=== PATIENT | female | born 1990 | race Two or more races ===

== ENCOUNTER 2019-01-18 15:44 | Emergency (ER) | payer BC, MEDICAID ==
[~2019-01-18] VITALS: Ht 165.1 cm; Wt 117.9 kg
[2019-01-18 16:01] VITALS: BP_SYST 145
--- NOTE | 2019-01-18 16:09 | NUR ---
Patient triaged and placed in waiting room. VSS and patient appears in no acute distress at this time. Accompanied by mother, awaiting available bed, and MD notified of need for MSE.
--- NOTE | 2019-01-18 16:10 | NUR ---
Patient to ER bed h1 for evaluation. Side rails up.
--- NOTE | 2019-01-18 16:12 | NUR ---
Pt AAOx4 ambulated into ED c/o abscess to L arm x 2 weeks with new onset numbness and tingling to L arm. Pt has been taking ibuprofen with no relief. Pt insists to not have D&C. Dr. Saez notified. No active bleeding to site. No other injuries/complaints per pt/noted. Will continue to monitor.
--- NOTE | 2019-01-18 16:13 | NUR ---
ER Dr. Saez at bedside examining patient.
[2019-01-18] MEDS ORDERED: MIDAZOLAM HCL 5 MG/5 ML VIAL IVP ONE (17:15)
[2019-01-18] MEDS ORDERED: KETAMINE 30 MG/3 ML SYRINGE 30 MG in NS 100 ML IV ONE (17:15)
[2019-01-18] MEDS ORDERED: NACL 0.9% 1,000 ML IV ONE (17:15)
[2019-01-18] MEDS ORDERED: LIDOCAINE 1% 10 MG/ML, 20 ML MDV INJ ONE (17:45)
--- NOTE | 2019-01-18 17:50 | NUR ---
Moved to bed 07
[2019-01-18] MEDS ORDERED: KETAMINE 30 MG/3 ML SYRINGE ONE (18:48)
[2019-01-18 19:52] VITALS: BP_SYST 135
--- NOTE | 2019-01-18 19:52 | NUR ---
Patient given written and verbal discharge instructions and verbalizes understanding. ER MD Saez discussed with patient the results and treatment provided. Patient in stable condition. ID arm band removed. IV catheter removed intact and dressing applied, no active bleeding. Rx of Tramadol, Motrin, Bactrim given. Patient educated on pain management and to follow up with PMD. Pain Scale 0. Opportunity for questions provided and answered. Medication side effect fact sheet provided.
== END 2019-01-18 19:52 | disposition home or self-care (01) ==
LOC: SED 15:44
DX: L02.412 Cutaneous abscess of left axilla (principal)
CPT/HCPCS: 10060; 96374; 96375; 99284; J2250; J7030

== ENCOUNTER 2019-01-20 10:19 | Emergency (ER) | payer MEDICAID ==
[~2019-01-20] VITALS: Ht 165.1 cm; Wt 120.7 kg
[2019-01-20 10:57] VITALS: BP_SYST 121
[2019-01-20 12:11] VITALS: BP_SYST 121
== END 2019-01-20 12:11 | disposition home or self-care (01) ==
LOC: SED 10:19
DX: L02.412 Cutaneous abscess of left axilla (principal)
CPT/HCPCS: 99282

== ENCOUNTER 2019-03-01 08:11 | Emergency (ER) | payer MEDICAID ==
[~2019-03-01] VITALS: Ht 165.1 cm; Wt 115.7 kg
--- NOTE | 2019-03-01 08:26 | NUR ---
Patient to ER bed 08 to gown for evaluation. Side rails up.
[2019-03-01 08:33] VITALS: BP_SYST 125
--- NOTE | 2019-03-01 08:38 | NUR ---
Dr. Saez @ bedside for examination.
--- NOTE | 2019-03-01 08:43 | NUR ---
Patient c/o of coughing x 1 day. Patient also complains of 8/10 headache that she also has been experiencing since yesterday. Patient in no signs of distress @ this time. Mother @ bedside.
[2019-03-01] MEDS ORDERED: PROMETHAZINE HCL/CODEINE 6.25-10 mg/5 mL UDC PO ONE (08:45)
[2019-03-01] MEDS ORDERED: NACL 0.9% 500 ML IV ONE (08:45)
[2019-03-01] MEDS ORDERED: KETOROLAC TROMETHAMINE 30 MG VIAL IVP ONE (08:45)
[2019-03-01 10:20] VITALS: BP_SYST 125
--- NOTE | 2019-03-01 10:20 | NUR ---
Patient given written and verbal discharge instructions and verbalizes understanding. ER MD discussed with patient the results and treatment provided. Patient in stable condition. ID arm band removed. IV catheter removed intact and dressing applied, no active bleeding. Rx of tamiflu, motrin, promethazine given. Patient educated on pain management and to follow up with PMD. Pain Scale 0/10.Opportunity for questions provided and answered. Medication side effect fact sheet provided.
== END 2019-03-01 10:20 | disposition home or self-care (01) ==
LOC: SED 08:11
DX: J10.1 Influenza due to other identified influenza virus with other respiratory manifestations (principal); R19.7 Diarrhea, unspecified
CPT/HCPCS: 36415; 86710; 96374; 99283; J1885; J7030